=== PATIENT | male | born 1995 | race Caucasian/White ===

== ENCOUNTER 2019-06-03 16:00 | Emergency (ER) | payer MEDICAID ==
[2019-06-03] MEDS ORDERED: Diphtheria,Pertussis(Acell),Tetanus Vaccine 0.5 ML Syringe IM ONE (16:26)
[2019-06-03] MEDS ORDERED: Bacitracin Oint 1 GM U/D Packet TOP ONE (16:26)
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
== END 2019-06-03 17:05 | disposition home or self-care (01) ==
LOC: MW.ED 16:00
DX: S20.311A Abrasion of right front wall of thorax, initial encounter (principal); Z23 Encounter for immunization; V58.5XXA Driver of pick-up truck or van injured in noncollision transport accident in traffic accident, initial encounter
CPT/HCPCS: 71046; 71046-26; 90471; 90715; 99283; 99284-25